=== PATIENT | male | born 1980 ===

== ENCOUNTER 2018-05-19 13:33 | Emergency (ER) | payer OTHER ==
[2018-05-19] MEDS: IBUPROFEN 800 MG TAB PO (14:37)
[2018-05-19] MEDS: SILVER NITRATE SWAB TOP (15:02)
[2018-05-19] MEDS: HYDROCODONE/APAP (5/325) TAB PO (15:43)
[2018-05-19] MEDS: DIPHTH/TET/ACEL PERTUSS (ADULT) 0.5 ML VIAL IM* (15:43)
== END 2018-05-19 15:57 | disposition home or self-care (01) ==
LOC: FTE 13:33
DX: S61.011A Laceration without foreign body of right thumb without damage to nail, initial encounter (principal); W26.8XXA Contact with other sharp object(s), not elsewhere classified, initial encounter; Y92.89 Other specified places as the place of occurrence of the external cause; Z23 Encounter for immunization
CPT/HCPCS: 12001; 73140; 90471; 90715; 99283-25